=== PATIENT | female | born 1970 | race American Indian/Alaskan Native ===

== ENCOUNTER 2022-02-01 11:37 | Emergency (ER) | payer SELFPAY ==
[2022-02-01 13:12] LABS: Bilirubin,Urine NEG (Negative); Blood,Urine NEG (Negative); Color,Urine Yellow (Yellow); Protein,Urine <15 mg/dL mg/dL (Negative); Urobilinogen,Urine < 2.0 mg/dL (<2.0)
[2022-02-01 13:25] LABS: Mucus,Urine FEW /HPF; RBC,Urine < 1.0 /HPF (0.0-6.0)
[2022-02-01 14:14] LABS: Hemoglobin 15.2 gm/dl (10.1-14.3); Mean Corpuscular HGB Conc 33 % (30-34); Mean Corpuscular Volume 94 fl (79-97); Platelet Count 242 K/mm3 (140-440); Red Blood Count 4.89 M/mm3 (3.65-5.03); Red Cell Distribution Width 14.5 % (13.2-15.2)
[2022-02-01] MEDS ORDERED: LIDOCAINE-MPF (1%) 10 MG/1 ML VIAL 5 ML INFILTRATI ONE (14:38)
--- NOTE | 2022-02-01 14:38 | Emergency Department Report ---
ED Dysuria HPI - HPI Chief Complaint: Abdominal Pain Stated Complaint: SEVERE ABD PAIN Time Seen by Provider: 02/01/22 14:35 Duration: 3 Days Location of Discomfort: Suprapubic Severity: Mild Symptoms: Dysuria: Yes, Frequency: No, Suprapubic Pain: No, Flank Pain: No, Fev er: No, Hematuria: No, Abdominal Pain: No, Previous UTI's: No Other History: Patient is a pleasant 51-year-old that comes in with 3-day history of left side pain. She denies fever or chills. She does endorse some diarrhea. She denies nausea vomiting. Denies chest pain or shortness of breath. ED Review of Systems ROS: Stated complaint: SEVERE ABD PAIN Other details as noted in HPI Comment: All other systems reviewed and negative ED Past Medical Hx - Past Medical History Previous Medical History?: Yes Hx Hypertension: Yes Hx HIV: Yes Additional medical history: Chronic sciatica pain for which she takes [place] - Surgical History Past Surgical History?: No - Family History Family history: no significant - Social History Smoking Status: Never Smoker Substance Use Type: None - Medications Home Medications: Home Medications Medication Instructions Recorded Confirmed Last Taken Type Fluconazole [Diflucan TAB] 100 mg PO QDAY #2 tablet 02/01/22 Unknown Rx Sulfamethoxazole/Trimethoprim 1 each PO BID #10 tablet 02/01/22 Unknown Rx [Bactrim DS TAB] Dysuria Exam - Exam General: Vital signs noted. No distress. Alert and acting appropriately. Exam: Yes Moist Mucous Membranes, No CVA Tenderness, No Abdominal Tenderness, No Rigidity or Guarding Labs: Lab Results 02/01/22 02/01/22 Range/Units 13:52 Unknown WBC 5.9 (4.5-11.0) K/mm3 RBC 4.89 (3.65-5.03) M/mm3 Hgb 15.2 H (10.1-14.3) gm/dl Hct 46.0 H (30.3-42.9) % MCV 94 (79-97) fl MCH 31 (28-32) pg MCHC 33 (30-34) % RDW 14.5 (13.2-15.2) % Plt Count 242 (140-440) K/mm3 Urine Color Yellow (Yellow) Urine Turbidity Clear (Clear) Urine pH 7.0 (5.0-7.0) Ur Specific [place] 1.018 (1.003-1.030) Urine Protein <15 mg/dl (Negative) mg/dL Urine Glucose (UA) Neg (Negative) mg/dL Urine Ketones Neg (Negative) mg/dL Urine Blood Neg (Negative) Urine Nitrite Pos (Negative) Urine Bilirubin Neg (Negative) Urine Urobilinogen < 2.0 (<2.0) mg/dL Ur Leukocyte Esterase Neg (Negative) Urine WBC (Auto) 1.0 (0.0-6.0) /HPF Urine RBC (Auto) < 1.0 (0.0-6.0) /HPF U Epithel Cells (Auto) 2.0 (0-13.0) /HPF Urine Mucus Few /HPF Urine Yeast (Budding) Few /HPF ED Course Vital Signs 02/01/22 12:19 Temperature 98.2 F Pulse Rate 76 Respiratory 16 Rate Blood Pressure 163/81 [Left] O2 Sat by Pulse 100 Oximetry - Reevaluation(s) Reevaluation #1: 02/01/22 15:51 Home medications include Norvasc, HCTZ, [place] and her HIV antivirals. ED Medical Decision Making - Lab Data Result diagrams: 02/01/22 13:52 02/01/22 13:52 - Medical Decision Making Vital Signs 02/01/22 12:19 Temperature 98.2 F Pulse Rate 76 Respiratory 16 Rate Blood Pressure 163/81 [Left] O2 Sat by Pulse 100 Oximetry Labs 02/01/22 02/01/22 02/01/22 13:52 13:52 Unknown WBC 5.9 RBC 4.89 Hgb 15.2 H Hct 46.0 H MCV 94 MCH 31 MCHC 33 RDW 14.5 Plt Count 242 Sodium 140 Potassium 4.4 Chloride 102.8 Carbon Dioxide 23 Anion Gap 19 BUN 13 Creatinine 0.8 Estimated GFR > 60 BUN/Creatinine Ratio 16 Glucose 108 H Calcium 9.6 Total Bilirubin 0.20 AST 27 ALT 26 Alkaline Phosphatase 73 Total Protein 7.5 Albumin 4.6 Albumin/Globulin Ratio 1.6 Lipase 16 Urine Color Yellow Urine Turbidity Clear Urine pH 7.0 Ur Specific [place] 1.018 Urine Protein <15 mg/dl Urine Glucose (UA) Neg Urine Ketones Neg Urine Blood Neg Urine Nitrite Pos Urine Bilirubin Neg Urine Urobilinogen < 2.0 Ur Leukocyte Esterase Neg Urine WBC (Auto) 1.0 Urine RBC (Auto) < 1.0 U Epithel Cells (Auto) 2.0 Urine Mucus Few Urine Yeast (Budding) Few UA noted. Rocephin IM given in the ER. Discharge home with Bactrim and Diflucan Patient being discharged home with discharge plan of care including diet, activity, medications and follow-up. Patient verbalizes understanding of plan of care. - Differential Diagnosis RO UTI/PYLO Critical care attestation.: If time is entered above; I have spent that time in minutes in the direct care of this critically ill patient, excluding procedure time. ED Disposition Clinical Impression: Yeast UTI UTI (urinary tract infection) Qualifiers: Urinary tract infection type: site unspecified Hematuria presence: without hematuria Qualified Code(s): N39.0 - Urinary tract infection, site not specified Disposition: 01 HOME / SELF CARE / HOMELESS Is pt being admited?: No Does the pt Need Aspirin: No Condition: Stable Instructions: Urinary Tract Infection, Adult, Abdominal Pain (ED) Additional Instructions: MED ORDERED UNTIL GONE THEN FOLLOW UP WITH PCP TO MAKE SURE THIS GOES AWAY STAY WELL HYDRATED WITH WATER MOTRIN OR TYLENOL FOR PAIN Prescriptions: Sulfamethoxazole/Trimethoprim [Bactrim DS TAB] 1 each PO BID #10 tablet Referrals: FAMILIA ALFORD MD [Staff Physician] - 3-5 Days Forms: Work/School Release Form(ED) Time of Disposition: 14:38
[2022-02-01 14:54] LABS: Alanine Aminotransferase 26 units/L (7-56); Albumin 4.6 g/dL (3.9-5); BUN/Creatinine Ratio 16; Blood Urea Nitrogen 13 mg/dL (7-17); Calcium 9.6 mg/dL (8.4-10.2); Hemolysis Index 57
[2022-02-01 16:09] VITALS: BP 128/86
== END 2022-02-01 16:06 | disposition home or self-care (01) ==
LOC: ED 11:37
DX: B37.41 Candidal cystitis and urethritis (principal); I10 Essential (primary) hypertension; Z21 Asymptomatic human immunodeficiency virus [HIV] infection status
CPT/HCPCS: 36415; 80053; 81001; 83690; 85027; 96372; 99283; J0696; J3490